=== PATIENT | female | born 1945 | race Caucasian/White ===

== ENCOUNTER 2021-05-15 13:19 | Emergency (ER) | payer BC, OTHER ==
[~2021-05-15 13:19] MED LIST: CARB-62 PO; OMEP20CA15 PO; RASA1TAB PO
--- NOTE | 2021-05-15 14:20 | NUR ---
Pt left without been seen
== END 2021-05-15 13:20 | disposition left against medical advice (07) ==
LOC: EDSEX 13:19 → SED 13:19
DX: I51.89 Other ill-defined heart diseases (principal); Z53.21 Procedure and treatment not carried out due to patient leaving prior to being seen by health care provider